=== PATIENT | female | born 1970 | race Caucasian/White ===

== ENCOUNTER 2019-10-21 10:49 | Emergency (ER) | payer BC ==
[2019-10-21 11:01] VITALS: BP 130/86; PULSE 87; TEMP 98.3; BMI 33.9
--- NOTE | 2019-10-21 11:03 | PDOC ---
History of Present Illness - General Chief Complaint: Edema Stated Complaint: LEFT LEG SWELLING Time Seen by Provider: 10/21/19 10:59 - History of Present Illness Initial Comments: 10/21/19 11:15 Chief complaint: Left thigh pain redness and swelling HPI: Patient with severe varicosities bilaterally since childhood, numerous procedures on her veins in the past, complains of pain, redness, and swelling of the left medial thigh since Tuesday. Has had superficial phlebitis in the past but no DVT/PE Review of systems: No chest pain, shortness of breath, abdominal pain, nausea, vomiting, diarrhea, increased swelling or pain in the left calf, ankle, or foot. Past medical history: Severe varicosities as noted above. Otherwise negative. No current medication other than baby aspirin since Tuesday, as recommended by her primary physician Social/family history: No smoking. No alcohol or other drugs. No recent travel. Physical exam: Alert and oriented moderately obese no acute distress cooperative Afebrile, vital signs normal HEENT normal Neck supple without bruit mass or nodes Lungs clear with full breath sounds bilaterally CV regular without murmur rub or gallop pulses full and symmetric no JVD. No bruits. No posterior calf swelling or tenderness. Abdomen soft nontender without mass organomegaly Extremities: Erythema, tenderness, and warmth over the superficial varicosities left medial thigh. No distal swelling, edema, or tenderness of the calf ankle or foot. Pulses full. No distal sensory deficits. Impression: Superficial phlebitis, no sign of DVT, no significant risk factors other than obesity and varicosities. Plan: Duplex ultrasound, further evaluation and treatment depending on results. Past History - Past Medical History Allergies/Adverse Reactions: Allergies Allergy/AdvReac Type Severity Reaction Status Date / Time No Known Allergies Allergy Verified 10/21/19 10:49 Home Medications: Ambulatory Orders NK [No Known Home Medication] 10/21/19 COPD: No Other medical history: PHLEBITIS - Psycho Social/Smoking Cessation Hx Smoking History: Never smoked Have you smoked in the past 12 months: No Information on smoking cessation initiated: No Hx Alcohol Use: No Drug/Substance Use Hx: No *Physical Exam - Vital Signs Last Vital Signs Temp Pulse Resp BP Pulse Ox 98.3 F 87 20 130/86 100 10/21/19 10:49 10/21/19 10:49 10/21/19 10:49 10/21/19 10:49 10/21/19 10:49 Medical Decision Making - Medical Decision Making 10/21/19 13:28 Vascular ultrasound is negative for DVT Superficial phlebitis to be treated with warm compresses, anti-inflammatories, rest and elevation. Patient has her own vascular surgeon with whom she consults and will seek follow-up there. Fully ambulatory and in no significant pain or other distress at discharge Discharge - Discharge Information Problems reviewed: Yes Clinical Impression/Diagnosis: Superficial phlebitis of left leg Condition: Stable Disposition: HOME - Admission No - Follow up/Referral - Patient Discharge Instructions Patient Printed Discharge Instructions: DI for Superficial Thrombophlebitis Additional Instructions: Rest, elevate, warm compresses, anti-inflammatory. Follow-up with your vascular surgeon as directed. - Post Discharge Activity
== END 2019-10-21 13:46 | disposition home or self-care (01) ==
LOC: FER 10:49
DX: I80.3 Phlebitis and thrombophlebitis of lower extremities, unspecified (principal)
CPT/HCPCS: 93971-TC; 99284-25